=== PATIENT | female | born 1955 | race Two or more races ===

== ENCOUNTER 2025-04-29 09:24 | Inpatient (IN) | payer OTHER ==
[~2025-04-29] VITALS: Ht 157.5 cm; Wt 61.7 kg
[2025-04-29] MEDS ORDERED: MOXIFLOXACIN HCL1 GM PO (09:35)
--- NOTE | 2025-04-29 09:35 | NUR ---
SE RECIBE PACIENTE ALERTA Y ORIENTADA X3 ACUDE A ER POR ORDEN MEDICA DE PIZARRO GASTRO DR.JOSE SHIN PARA EVALUACION Y ADMSIOON POR PERFORACION Y OBSTRUCCION PARCIAL Y ACUMULACION DE LIQUIDO MARKO EN CT.
[2025-04-29] MEDS ORDERED: 0.9 % SODIUM CHLORIDE 1,000 ML IV SCH ×2 (10:00→17:45)
[2025-04-29 11:26] LABS: BASO % 0.3 % (0.1-1.2); EOS # 0.09 (0.04-0.54); EOS % 1.4 % (0.7-7.0); LYMPH # 1.69 (1.18-3.74); LYMPH % 27.0 % (19.3-53.1); MEAN PLATELET VOLUME 8.60 fl (9.4-12.4); MONO # 0.57 (0.24-0.82); MONO % 9.1 % (4.7-12.5); NEUT # 3.87 (1.56-6.13); NEUT % 61.7 % (34.0-71.1); RED CELL DISTRIBUTION WIDTH 14.6 % (11.6-14.4)
--- NOTE | 2025-04-29 11:34 | NUR ---
PACIENTE ALERTA Y ORIENTADA X 3. SE ORIENTA DE TRATAMIENTO COOPER ORDEN MEDICA. REFIERE ENTENDER. SE CANLIZA, SE RENE MUESTRAS Y SE ADMINISTRA MEDICAMENTO CON MEDIDAS ASEPTICAS CORRESPONDIENTES. EN ESPERA DE CT.
[2025-04-29 12:07] LABS: INR 1.08
[2025-04-29 12:22] LABS: ALT/SGPT 22.0 U/L (12-78); AST/SGOT 19.0 U/L (15-37); BILIRUBIN TOTAL 0.86 mg/dL (0.3-1.2); BUN CREA RATIO 21.0 (7.0-25.0); CREATININE SERUM 0.57 mg/dL (0.55-1.02); GFR 105.17; GLOBULINA 3.4 G/DL (2.4-3.5); GLUCOSE FASTING 94.0 mg/dL (65-100); OSMOLALITY SERUM 283.0 MOSM/KG (275-295)
[2025-04-29 14:26] LABS: URINE APPEARANCE Clear; URINE BACTERIA 20.3 uL (0.0-1933); URINE BILIRRUBIN Negative (NEGATIVE); URINE BLOOD Negative; URINE COLOR Yellow; URINE EPITHELIAL CELLS 3.9 uL (0.0-38.8); URINE GLUCOSE Negative (NEGATIVE); URINE KETONE Trace (NEGATIVE); URINE LEUKOCYTE Negative; URINE NITRATE Negative; URINE PROTEIN Trace (NEGATIVE); URINE RBC 25.9 uL (0.0-20.8); URINE UROBILINOGEN 1.0 E.U./dl; URINE WBC 4.6 uL (0.0-23.2)
[2025-04-29 14:51] LABS: URINE CAST 0.00 uL (0.0-1.40)
[2025-04-29 14:53] LABS: URINE CRYSTALS MODERATE /HPF; URINE MUCUS SCANT
[2025-04-29] MEDS ORDERED: ACETAMINOPHEN 500 MG GEL..CAP PO PRN (17:45)
[2025-04-29] MEDS ORDERED: MORPHINE SULFATE 4 MG/ML CARTRIDGE IV PRN (17:45)
[2025-04-29] MEDS ORDERED: ONDANSETRON HCL 4 MG in 0.9 % SODIUM CHLORIDE 50 ML IV PRN (17:45)
[2025-04-29] MEDS ORDERED: PIPERACILLIN/TAZOBACTAM SODIUM 3.375 GM in 0.9 % SODIUM CHLORIDE 100 ML IV SCH (18:00)
[2025-04-29 18:20] VITALS: BP 140/74
[2025-04-29 19:45] LABS: COVID-19 AG NEGATIVE (NEGATIVE)
[2025-04-29 20:06] VITALS: BP 140/74; O2SAT 100
[2025-04-30] MEDS ORDERED: ENOXAPARIN SODIUM 40 MG/0.4 ML SYRINGE SUBCUTANEO SCH (09:00)
[2025-04-30] MEDS ORDERED: FAMOTIDINE/PF 20 MG in 0.9 % SODIUM CHLORIDE 8 ML IV PUSH SCH (09:00)
[2025-04-30 10:45] VITALS: BP 129/72; O2SAT 100
[2025-04-30 17:38] VITALS: BP 126/76; O2SAT 100
[2025-05-01 08:06] VITALS: BP 120/66; O2SAT 98
[2025-05-01 15:30] VITALS: BP 118/62; O2SAT 98
[2025-05-02 01:17] VITALS: BP 116/55; O2SAT 97
[2025-05-02 06:56] LABS: BASO % 0.4 % (0.1-1.2); EOS # 0.18 (0.04-0.54); EOS % 3.8 % (0.7-7.0); LYMPH # 1.38 (1.18-3.74); LYMPH % 28.9 % (19.3-53.1); MEAN PLATELET VOLUME 9.00 fl (9.4-12.4); MONO # 0.38 (0.24-0.82); MONO % 8.0 % (4.7-12.5); NEUT # 2.78 (1.56-6.13); NEUT % 58.3 % (34.0-71.1); RED CELL DISTRIBUTION WIDTH 14.4 % (11.6-14.4)
[2025-05-02 07:53] LABS: ALT/SGPT 16.0 U/L (12-78); AST/SGOT 13.0 U/L (15-37); BILIRUBIN TOTAL 1.1 mg/dL (0.3-1.2); BUN CREA RATIO 20.0 (7.0-25.0); CREATININE SERUM 0.5 mg/dL (0.55-1.02); GFR 122.33; GLOBULINA 2.9 G/DL (2.4-3.5)
[2025-05-02 08:00] VITALS: BP 103/56; O2SAT 99
[2025-05-02 08:27] LABS: OSMOLALITY SERUM 287.0 MOSM/KG (275-295)
[2025-05-02 08:28] LABS: GLUCOSE FASTING 45.0 mg/dL (65-100)
[2025-05-02] MEDS ORDERED: LACTULOSE 20 G/30 ML BLIST.PACK PO NR (08:30)
[2025-05-02] MEDS ORDERED: DIATRIZOATE MEGLUMINE, SODIUM 30 ML BOTTLE PO NR (08:30)
[2025-05-02] MEDS ORDERED: DEXTROSE 50 % IN WATER 0.5 G/ML DISP.SYRIN IV STA (09:14)
[2025-05-02] MEDS ORDERED: DEXTROSE 50 % IN WATER 0.5 G/ML VIAL IV PRN ×2 (09:15→12:45)
[2025-05-02] MEDS ORDERED: INSULIN LISPRO 1,000 UNIT/10 ML UNITS SUBCUTANEO PRN (12:45)
[2025-05-02] MEDS ORDERED: AA 2.36%/D6.8W/FAT/E-LYTES NO9 1,440 ML IV SCH (17:00)
[2025-05-02 17:40] VITALS: BP 123/78; O2SAT 99
[2025-05-03 00:32] VITALS: BP 136/76; O2SAT 98
[2025-05-03 08:15] LABS: BUN CREA RATIO 15.0 (7.0-25.0); CREATININE SERUM 0.4 mg/dL (0.55-1.02); GFR 158.26; GLUCOSE FASTING 98.0 mg/dL (65-100); OSMOLALITY SERUM 283.0 MOSM/KG (275-295)
[2025-05-03 08:19] LABS: BASO % 0.5 % (0.1-1.2); EOS # 0.19 (0.04-0.54); EOS % 4.3 % (0.7-7.0); LYMPH # 1.48 (1.18-3.74); LYMPH % 33.9 % (19.3-53.1); MEAN PLATELET VOLUME 9.30 fl (9.4-12.4); MONO # 0.41 (0.24-0.82); MONO % 9.4 % (4.7-12.5); NEUT # 2.26 (1.56-6.13); NEUT % 51.7 % (34.0-71.1); RED CELL DISTRIBUTION WIDTH 14.3 % (11.6-14.4)
[2025-05-03 10:10] VITALS: BP 110/68; O2SAT 98
[2025-05-03] MEDS ORDERED: POTASSIUM CHLORIDE 20MEQ/100ML H2O PB IV NR (11:00)
[2025-05-03 16:00] VITALS: BP 134/80; O2SAT 98
[2025-05-04 00:14] VITALS: BP 111/73; O2SAT 98
[2025-05-04 08:00] VITALS: BP 108/67; O2SAT 98
[2025-05-04 15:55] VITALS: BP 134/80; O2SAT 98
[2025-05-05 00:45] VITALS: BP 106/69; O2SAT 100
[2025-05-05 06:47] LABS: BASO % 0.5 % (0.1-1.2); EOS # 0.34 (0.04-0.54); EOS % 7.8 % (0.7-7.0); LYMPH # 1.53 (1.18-3.74); LYMPH % 35.2 % (19.3-53.1); MEAN PLATELET VOLUME 9.30 fl (9.4-12.4); MONO # 0.36 (0.24-0.82); MONO % 8.3 % (4.7-12.5); NEUT # 2.08 (1.56-6.13); NEUT % 47.7 % (34.0-71.1); RED CELL DISTRIBUTION WIDTH 14.5 % (11.6-14.4)
[2025-05-05 07:29] LABS: INR 1.01
[2025-05-05 07:47] LABS: ALT/SGPT 29.0 U/L (12-78); AST/SGOT 26.0 U/L (15-37); BILIRUBIN TOTAL 0.53 mg/dL (0.3-1.2); BILIRUBIN,CONJUGATED 0.14 mg/dL (0.0-0.2); BUN CREA RATIO 10.0 (7.0-25.0); CHOL HDL RATIO 3.0 (0-5.0); CREATININE SERUM 0.4 mg/dL (0.55-1.02); GFR 158.26; GLOBULINA 3.1 G/DL (2.4-3.5); GLUCOSE FASTING 88.0 mg/dL (65-100); HDL 49.0 mg/dl (40-60); LDL 72.0 mg/dl (0-130); OSMOLALITY SERUM 287.0 MOSM/KG (275-295); VLDL 25.0 (0-39)
[2025-05-05 07:53] VITALS: BP 154/66; O2SAT 98
[2025-05-05] MEDS ORDERED: SODIUM CHLORIDE 0.45 % 1,000 ML IV SCH (08:45)
[2025-05-05 09:26] LABS: UREA CLEARANCE 39.7 ML/MIN
[2025-05-05 16:00] VITALS: BP 166/76; O2SAT 98
[2025-05-05] MEDS ORDERED: ENALAPRILAT DIHYDRATE 1.25 MG/ML VIAL IV STA (19:06)
[2025-05-05] MEDS ORDERED: ENALAPRILAT DIHYDRATE 1.25 MG/ML VIAL IV PRN (19:15)
[2025-05-05 22:00] VITALS: BP 154/79
[2025-05-06 03:32] VITALS: BP 114/51; O2SAT 99
[2025-05-06 08:00] VITALS: BP 130/71; O2SAT 100
[2025-05-06 16:00] VITALS: BP 151/76; O2SAT 100
[2025-05-07 01:50] VITALS: BP 119/72; O2SAT 100
[2025-05-07 08:21] VITALS: BP 132/66; O2SAT 100
[2025-05-07 10:41] LABS: BASO % 0.6 % (0.1-1.2); EOS # 0.35 (0.04-0.54); EOS % 5.6 % (0.7-7.0); LYMPH # 1.36 (1.18-3.74); LYMPH % 21.6 % (19.3-53.1); MEAN PLATELET VOLUME 9.80 fl (9.4-12.4); MONO # 0.40 (0.24-0.82); MONO % 6.3 % (4.7-12.5); NEUT # 4.12 (1.56-6.13); NEUT % 65.4 % (34.0-71.1); RED CELL DISTRIBUTION WIDTH 14.6 % (11.6-14.4)
[2025-05-07 10:48] LABS: BUN CREA RATIO 10.0 (7.0-25.0); CREATININE SERUM 0.61 mg/dL (0.55-1.02); GFR 97.25; GLUCOSE FASTING 116.0 mg/dL (65-100); OSMOLALITY SERUM 291.0 MOSM/KG (275-295)
[2025-05-07] MEDS ORDERED: MAGNESIUM CITRATE 296 ML BOTTLE PO ONE ×2 (13:45→17:00)
[2025-05-07] MEDS ORDERED: BISACODYL 5 MG TABLET.EC PO NR (17:00)
[2025-05-07 17:41] VITALS: BP 163/89; O2SAT 100
[2025-05-08 01:08] VITALS: BP 139/61; O2SAT 96
[2025-05-08 08:28] VITALS: BP 142/72; O2SAT 98
[2025-05-08] MEDS ORDERED: LIDOCAINE HCL 1%/EPINEPHRINE 50ML VIAL IJ ONE (09:15)
[2025-05-08] MEDS ORDERED: BUPIVACAINE HCL/PF 0.25% 30ML VIAL InF ONE (09:15)
[2025-05-08] MEDS ORDERED: SUGAMMADEX SODIUM 200 MG/2 ML VIAL IV ONE ×2 (09:47→11:45)
[2025-05-08] MEDS ORDERED: THROMBIN,HU/FIBRINOGEN/CALCIUM 10 ML SYRINGE TOP ONE (09:59)
[2025-05-08] MEDS ORDERED: VISTASEAL DUAL APPICATOR 1 EACH APPL TOP ONE (09:59)
[2025-05-08] MEDS ORDERED: ONDANSETRON HCL 2 MG/ML VIAL IV PRN (11:15)
[2025-05-08] MEDS ORDERED: OxyCODONE HCL 5 MG TABLET (ROXICODONE) PO PRN (11:15)
[2025-05-08] MEDS ORDERED: DEXTROSE 50 % IN WATER 0.5 G/ML VIAL IV PRN (11:15)
[2025-05-08] MEDS ORDERED: MORPHINE SULFATE 4 MG/ML CARTRIDGE IV PRN (11:15)
[2025-05-08] MEDS ORDERED: 0.9 % SODIUM CHLORIDE 1,000 ML IV SCH (11:15)
[2025-05-08] MEDS ORDERED: PIPERACILLIN/TAZOBACTAM SODIUM 3.375 GM VIAL IV ONE (12:01)
[2025-05-08] MEDS ORDERED: MORPHINE SULFATE 4 MG/ML VIAL IV ONE ×2 (12:15→12:45)
[2025-05-08 12:24] LABS: BASO % 0.3 % (0.1-1.2); EOS # 0.11 (0.04-0.54); EOS % 0.7 % (0.7-7.0); LYMPH # 1.02 (1.18-3.74); LYMPH % 6.7 % (19.3-53.1); MEAN PLATELET VOLUME 9.30 fl (9.4-12.4); MONO # 0.44 (0.24-0.82); MONO % 2.9 % (4.7-12.5); NEUT # 13.45 (1.56-6.13); NEUT % 88.9 % (34.0-71.1); RED CELL DISTRIBUTION WIDTH 14.5 % (11.6-14.4)
[2025-05-08] MEDS ORDERED: ENALAPRILAT DIHYDRATE 1.25 MG/ML VIAL IV ONE (12:37)
[2025-05-08] MEDS ORDERED: HYOSCYAMINE SULFATE 0.125 MG TAB.SUBL SL SCH (13:00)
[2025-05-08 13:05] LABS: BUN CREA RATIO 12.0 (7.0-25.0); CREATININE SERUM 0.51 mg/dL (0.55-1.02); GFR 119.57; GLUCOSE FASTING 164.0 mg/dL (65-100); OSMOLALITY SERUM 283.0 MOSM/KG (275-295)
[2025-05-08] MEDS ORDERED: ACETAMINOPHEN 500 MG GEL..CAP PO SCH (14:00)
[2025-05-08 14:12] VITALS: BP 128/64; O2SAT 95
[2025-05-08 16:00] VITALS: BP 148/78; O2SAT 96
[2025-05-08] MEDS ORDERED: GABAPENTIN 300 MG CAPSULE PO SCH (17:00)
[2025-05-08] MEDS ORDERED: METRONIDAZOLE/SODIUM CHLORIDE 500 MG/100 ML PIGGYBACK IV SCH (17:00)
[2025-05-08] MEDS ORDERED: FAMOTIDINE/PF 20 MG/2 ML VIAL IV PUSH SCH (21:00)
[2025-05-08] MEDS ORDERED: CELECOXIB 200 MG CAPSULE PO SCH (21:00)
[2025-05-09 01:57] VITALS: BP 125/67; O2SAT 97
[2025-05-09 06:43] LABS: BASO % 0.1 % (0.1-1.2); EOS # 0.06 (0.04-0.54); EOS % 0.8 % (0.7-7.0); LYMPH # 1.59 (1.18-3.74); LYMPH % 19.9 % (19.3-53.1); MEAN PLATELET VOLUME 9.70 fl (9.4-12.4); MONO # 0.75 (0.24-0.82); MONO % 9.4 % (4.7-12.5); NEUT # 5.53 (1.56-6.13); NEUT % 69.2 % (34.0-71.1); RED CELL DISTRIBUTION WIDTH 14.5 % (11.6-14.4)
[2025-05-09 07:15] LABS: BUN CREA RATIO 23.0 (7.0-25.0); CREATININE SERUM 0.52 mg/dL (0.55-1.02); GFR 116.92; GLUCOSE FASTING 95.0 mg/dL (65-100); OSMOLALITY SERUM 286.0 MOSM/KG (275-295)
[2025-05-09 08:00] VITALS: BP 152/73; O2SAT 97
[2025-05-09 16:36] VITALS: BP 105/60; O2SAT 96
[2025-05-09] MEDS ORDERED: ENOXAPARIN SODIUM 40 MG/0.4 ML SYRINGE SUBCUTANEO SCH (17:00)
[2025-05-10 00:15] VITALS: BP 125/73; O2SAT 100
[2025-05-10 07:52] LABS: BASO % 0.4 % (0.1-1.2); EOS # 0.24 (0.04-0.54); EOS % 4.8 % (0.7-7.0); LYMPH # 1.29 (1.18-3.74); LYMPH % 26.0 % (19.3-53.1); MEAN PLATELET VOLUME 10.10 fl (9.4-12.4); MONO # 0.50 (0.24-0.82); MONO % 10.1 % (4.7-12.5); NEUT # 2.90 (1.56-6.13); NEUT % 58.3 % (34.0-71.1); RED CELL DISTRIBUTION WIDTH 14.6 % (11.6-14.4)
[2025-05-10 08:00] VITALS: BP 152/82; O2SAT 99
[2025-05-10 08:41] LABS: BUN CREA RATIO 21.0 (7.0-25.0); CREATININE SERUM 0.48 mg/dL (0.55-1.02); GFR 128.23; GLUCOSE FASTING 101.0 mg/dL (65-100); OSMOLALITY SERUM 290.0 MOSM/KG (275-295)
[2025-05-10] MEDS ORDERED: ENOXAPARIN SODIUM 40 MG/0.4 ML SYRINGE SUBCUTANEO SCH (09:00)
[2025-05-10] MEDS ORDERED: POTASSIUM CHLORIDE 20MEQ/100ML H2O PB IV NR (13:10)
[2025-05-10 16:00] VITALS: BP 127/73; O2SAT 98
[2025-05-11 01:09] VITALS: BP 131/57; O2SAT 97
[2025-05-11] MEDS ORDERED: SODIUM CL 0.9% 100 ML IV.SOLN IV ONE ×3 (03:51→06:43)
[2025-05-11] MEDS ORDERED: TRAM1TAB98 PO (09:33)
[2025-05-11] MEDS ORDERED: HYOSCYAMINE0.125 M1 SL (09:33)
[2025-05-11] MEDS ORDERED: PEPCID AC20 MG PO (09:33)
== END 2025-05-11 15:12 | disposition home or self-care (01) | DRG 330 ==
LOC: ER 09:24 → SURG 17:44 → SEC-K 17:44 → SURG 05-01 00:04
PROVIDERS: Emergency Medicine; General Practice; Internal Medicine Geriatric Medicine; Internal Medicine Infectious Disease; ADMIT Surgery; ATTEND Surgery
PROC: BW21YZZ Computerized Tomography (CT Scan) of Abdomen and Pelvis using Other Contrast (ICD-10-PCS; 2025-04-29)
PROC: BW21ZZZ Computerized Tomography (CT Scan) of Abdomen and Pelvis (ICD-10-PCS; 2025-05-02)
PROC: 02HV33Z Insertion of Infusion Device into Superior Vena Cava, Percutaneous Approach (ICD-10-PCS; 2025-05-03)
PROC: 0DBP4ZZ Excision of Rectum, Percutaneous Endoscopic Approach (ICD-10-PCS; 2025-05-08)
PROC: 0DJD8ZZ Inspection of Lower Intestinal Tract, Via Natural or Artificial Opening Endoscopic (ICD-10-PCS; 2025-05-08)
PROC: 0DTN4ZZ Resection of Sigmoid Colon, Percutaneous Endoscopic Approach (ICD-10-PCS; principal; 2025-05-08 08:00)
DX: K57.20 Diverticulitis of large intestine with perforation and abscess without bleeding (principal); K56.600 Partial intestinal obstruction, unspecified as to cause; D64.9 Anemia, unspecified; R59.0 Localized enlarged lymph nodes; I10 Essential (primary) hypertension